=== PATIENT | male | born 1980 | race Caucasian/White ===

== ENCOUNTER 2021-12-16 15:24 | Emergency (ER) | payer OTHER, SELFPAY ==
--- NOTE | ~2021-12-16 | CT_ITS ---
EXAMINATION: CT head/brain wo con, CT cervical spine wo con INDICATION INFORMATION: Fall. COMPARISON: CT head 10/16/2014 TECHNIQUE: Separate noncontrast CT examinations of the head and cervical spine were performed. Coronal and sagittal reformats were obtained at the acquisition workstation. DLP: 810 mGy-cm FINDINGS: HEAD: There is no evidence of acute intracranial hemorrhage or territorial infarction. Jeong to white matter differentiation is well preserved. No abnormal mass effect or midline shift is seen. No extra-axial fluid collections are identified. No hydrocephalus. No significant volume loss. There is no abnormal attenuation within the brain parenchyma. The cerebellar tonsils are well positioned. Right posterior parietal soft tissue swelling and scalp hematoma. No acute calvarial fracture is seen. Evidence of old left lamina papyracea fracture. . Visualized portions of the orbits are unremarkable. The mastoid air cells and visualized portions of the paranasal sinuses are well aerated. CERVICAL SPINE: Posterior alignment is maintained without significant subluxation. Vertebral body heights are maintained. No acute fractures are identified. Disc spaces relatively maintained. Mild C6-C7 disc degeneration. The atlantoaxial and atlantooccipital articulations are intact. No prevertebral soft tissue swelling. There is no cervical lymphadenopathy. No suspicious thyroid findings seen.. The visualized lung apices are clear. Visualized portion the clavicles and ribs appear intact. CT/CT head/brain wo con IMPRESSION: No CT evidence of acute intracranial pathology. Right posterior parietal soft tissue swelling and scalp hematoma. No acute osseous abnormality identified within the cervical spine.
--- NOTE | ~2021-12-16 | XR_ITS ---
EXAMINATION: 1. RADIOGRAPHS RIGHT RIBS 2. RADIOGRAPHS RIGHT SHOULDER CLINICAL INFORMATION: Pain after fall down 9 stairs. COMPARISON: None TECHNIQUE: 3 views of the right ribs and 4 views of the right shoulder were obtained. FINDINGS: Right RIBS: Cardiac silhouette is normal in size. The lungs are well aerated. There is no lobar consolidation. No pleural effusion or pneumothorax. No right-sided rib fracture. Right shoulder: Visualized portion of the proximal right humerus demonstrate no fracture. Humeral head demonstrates good articulation with the glenoid fossa. The right acromioclavicular joint is normal in appearance. XR/XR shoulder RT min 2V IMPRESSION: -No right-sided rib fracture. -Unremarkable radiographs of the right shoulder.
--- NOTE | ~2021-12-16 | XR_ITS ---
EXAMINATION: 1. RADIOGRAPHS RIGHT RIBS 2. RADIOGRAPHS RIGHT SHOULDER CLINICAL INFORMATION: Pain after fall down 9 stairs. COMPARISON: None TECHNIQUE: 3 views of the right ribs and 4 views of the right shoulder were obtained. FINDINGS: Right RIBS: Cardiac silhouette is normal in size. The lungs are well aerated. There is no lobar consolidation. No pleural effusion or pneumothorax. No right-sided rib fracture. Right shoulder: Visualized portion of the proximal right humerus demonstrate no fracture. Humeral head demonstrates good articulation with the glenoid fossa. The right acromioclavicular joint is normal in appearance. XR/XR ribs RT min 3V w CXR1V IMPRESSION: -No right-sided rib fracture. -Unremarkable radiographs of the right shoulder.
--- NOTE | ~2021-12-16 | CT_ITS ---
EXAMINATION: CT head/brain wo con, CT cervical spine wo con INDICATION INFORMATION: Fall. COMPARISON: CT head 10/16/2014 TECHNIQUE: Separate noncontrast CT examinations of the head and cervical spine were performed. Coronal and sagittal reformats were obtained at the acquisition workstation. DLP: 810 mGy-cm FINDINGS: HEAD: There is no evidence of acute intracranial hemorrhage or territorial infarction. Jeong to white matter differentiation is well preserved. No abnormal mass effect or midline shift is seen. No extra-axial fluid collections are identified. No hydrocephalus. No significant volume loss. There is no abnormal attenuation within the brain parenchyma. The cerebellar tonsils are well positioned. Right posterior parietal soft tissue swelling and scalp hematoma. No acute calvarial fracture is seen. Evidence of old left lamina papyracea fracture. . Visualized portions of the orbits are unremarkable. The mastoid air cells and visualized portions of the paranasal sinuses are well aerated. CERVICAL SPINE: Posterior alignment is maintained without significant subluxation. Vertebral body heights are maintained. No acute fractures are identified. Disc spaces relatively maintained. Mild C6-C7 disc degeneration. The atlantoaxial and atlantooccipital articulations are intact. No prevertebral soft tissue swelling. There is no cervical lymphadenopathy. No suspicious thyroid findings seen.. The visualized lung apices are clear. Visualized portion the clavicles and ribs appear intact. CT/CT cervical spine wo con IMPRESSION: No CT evidence of acute intracranial pathology. Right posterior parietal soft tissue swelling and scalp hematoma. No acute osseous abnormality identified within the cervical spine.
[2021-12-16 15:31] VITALS: BP 128/70; PULSE 73; RESP 18; TEMP 36.9; O2SAT 98; BMI 28.5
[2021-12-16 15:33] VITALS: BP 128/70; PULSE 68; RESP 16; TEMP 36.9; O2SAT 97
[2021-12-16] MEDS: Lidocaine HCl 1 % MPF 5 ML VIAL SUBCUT ×2 (16:46)
[2021-12-16] MEDS: Diphth,Pertus(ACell),Tet Adult 0.5 ML SYRINGE IM (16:46)
--- NOTE | 2021-12-16 17:46 | ED.FALL ---
HPI - Fall General Chief Complaint: Fall Stated Complaint: syncope Time Seen by Provider: 12/16/21 15:46 Source: patient and EMS Mode of arrival: EMS History of Present Illness HPI Narrative: 40-year-old male with no significant PMHx presenting to the ED complaining of scalp hematoma, forehead and eyelid laceration, right shoulder and right rib pain s/p fall down 9 stairs and syncopal episode [employer]IDE [employer]. Reports was helping friend and had mechanical fall down stairs landing on ribs/ hit back of head without LOC, denies symptoms prior to fall. Reports then went home and slept it off, states when woke up stood up had severe right-sided rib pain, felt lightheaded and syncopized falling to the ground +head trauma, +LOC, + sustaining facial lacerations. Denies headache at present, lightheadedness/dizziness, CP/SOB, abdominal pain, nausea/vomiting. Denies taking anticoagulation. Tetanus unknown MD complaint: fall Onset (ago): hour(s) Related Data Allergies Allergy/AdvReac Type Severity Reaction Status Date / Time No Known Allergies Allergy Unverified 07/14/20 16:08 Review of Systems Review of Systems: Constitutional: No Fever, No Chills, No Fatigue, No Malaise ENT/Mouth: No Ear Pain, No Nasal Congestion, No sore throat, No Rhinorrhea Eyes: No Eye Pain, No Swelling, No Redness, No Vision Changes Cardiovascular: + Chest wall Pain, No SOB, No Edema, No Palpitations Respiratory: No Cough, No Sputum, No Dyspnea Gastrointestinal: No Nausea, No Vomiting, No Diarrhea, No Constipation, No Abdominal pain Genitourinary: No Dysuria, No Urinary Frequency, No Hematuria, No Urinary Incontinence, No Flank Pain Musculoskeletal: + joint pain, No Myalgias, No Joint Swelling Skin: + Skin Lesions, No rash Neuro: No Weakness, No Numbness, No Paresthesias, + Loss of Consciousness, + lightheadedness (resolved), No Headache Yes all other systems are reviewed and are negative Neurologic: Denies Abnormal speech present [facility] Past Medical History Attestation statement: The following information was validated with the patient. Medical History No known health problems Social History Social History Advance Directives: No Advance Directives Information Provided: No Physical Exam Vital Signs: Vital Signs: Last Vital Signs Temp 98.4 F 12/16/21 15:33 Pulse 68 12/16/21 15:33 Resp 16 12/16/21 15:33 BP 128/70 12/16/21 15:33 Pulse Ox 97 12/16/21 15:33 BMI result Body Mass Index 28.5 Const: General: cooperative Orientation/consciousness: patient oriented x3 Limitations: no limitations HENMT: Other: + hematoma to right posterior scalp with overlying abrasions. No palpable skull depression Head: No Carney's sign and No raccoon eyes Ears: hearing grossly normal bilaterally General nose exam: Normal external nose present Face and sinus: Yes normal facial exam Mouth: Normal oral and palatal mucosa present Throat: Yes posterior oropharynx normal Eyes: General: appearance normal, both eyes and all related structures Pupils: Equal, round and reactive pupils present EOM: EOMs intact bilaterally Neck: Other: No midline cervical spinous tenderness/step-off or deformity Neck: Yes normal visual inspection, Yes no meningeal signs and Yes supple Chest: Other: Right anteriolateral chest wall tenderness reproducing subjective complaint Chest palpation & inspection: no crepitus and tenderness Resp: Effort & Inspection: normal respiratory effort and no respiratory distress Auscultation: clear to auscultation bilaterally, no crackles and no wheezes Cardio: Rate: regular rate Heart sounds: S1 normal heart sound present and S2 normal heart sound present GI: Inspection: Yes normal to inspection Palpation (GI): Soft to palpation, nontender, no guarding and not rigid : General: Yes no CVA tenderness Back/Spine/Pelvis: Other: No midline thoracic/lumbar spinous tenderness/step-off or deformity Back: no CVA tenderness Skin: Other: + 2 cm Irregular deep laceration to forehead + 2 cm superficial laceration to right upper eyelid. No ocular involvement. PERRLA, EOMI Rashes: no rashes Neuro: General: patient oriented x3, gait normal, tone normal, moves all extremities, no meningeal signs, no focal motor deficits and CN's II-XI intact bilaterally Cranial nerves: Yes CN's II-XII intact bilaterally, Yes Equal, round and reactive pupils present, Yes Bilaterally intact EOM present and Yes Midline tongue present Cognition (Neuro): normal cognition Speech: No Abnormal speech present Gait exam (Neuro): Normal gait present Motor exam (neuro): 5/5 motor strength present throughout Extrem: Other: Right shoulder with mild tenderness. No deformity. Neurovascular intact distally. Full range of motion intact. Clavicle nontender General: Yes normal to inspection Course Course Course Narrative: CT head/brain wo con/ CT cervical spine wo con IMPRESSION: No CT evidence of acute intracranial pathology. Right posterior parietal soft tissue swelling and scalp hematoma. No acute osseous abnormality identified within the cervical spine. XR shoulder RT min 2V/XR ribs RT min 3V w CXR1V IMPRESSION: -No right-sided rib fracture. -Unremarkable radiographs of the right shoulder.? -patient agreeable to labs and EKG being performed however would like to be discharged prior to results > discussed risks of leaving, patient verbalized understanding, is A&O x3, Ambulating around ED without difficulty, competent to make his own decisions -1834--Labs resulted: AST/ALT elevated (no priors to compare-to follow-up with GI outpatient), Troponin 30.7 >> called and spoke to patient, made aware of result & Educated patient on importance of repeat troponin 3 hours from prior due to symptomatology and inability to rule out cardiac event as presented after syncopal episode. Recommended return to ED around 21:00 for repeat Troponin, patient verbalized understanding and stated he would return to emergency department for repeat lab test Procedures Laceration Laceration 1: Site: face Size (cm): 2 Description: irregular Depth: simple, single layer Local Anesthetic: lidocaine 1% Amount of anesthesia used (mL): 3 Pre-repair: wound explored Skin layer closed with: nylon Size (cm): 6-0 Number of sutures: 6 Technique: simple, interrupted Laceration 2: Site: face (Right upper eyelid) Side (If applicable): right Size (cm): 2 Description: linear Depth: simple, single layer Pre-repair: wound explored Skin layer closed with: other (Dermabond) MDM - Fall MDM Narrative Medical decision making narrative: 40-year-old male with no significant PMHx presenting to the ED complaining of scalp hematoma, forehead and eyelid laceration, right shoulder and right rib pain s/p fall down 9 stairs and syncopal episode [employer]. On exam vital signs stable, NAD/nontoxic-appearing, physical exam as above, no focal neuro deficits, right-sided rib tenderness elicited, no abdominal tenderness. Concern for ICH/rule out fracture vs rib fracture or contusion vs shoulder sprain. Syncope likely vasovagal/pain related, r/o arrhythmia vs ACS Low suspicion for intra-abdominal injury without tenderness on exam Pain: EKG, labs, head/C-spine CT, rib series, shoulder x-ray, update tetanus, repair wounds Differential Diagnosis Differential diagnosis: Likely syncope, fracture and concussion with loss of consciousness Medical Records Attestation: I reviewed the patient's medical records. Lab Data Attestation: I reviewed the patient's lab results. Result diagrams: 12/16/21 17:59 12/16/21 17:59 Labs: Lab Results 12/16/21 12/16/21 12/16/21 Range/Units 17:59 17:59 17:59 WBC 11.0 H (4.8-10.8) X10*3/uL RBC 4.72 (4.60-5.80) X10*6/uL Hgb 14.6 (14.0-18.0) g/dl Hct 42.1 (42.0-52.0) % MCV 89.2 (80.0-98.0) fL MCH 30.9 (27.0-33.0) pg MCHC 34.7 (31.0-36.0) g/dl RDW 12.8 (11.0-16.0) % Plt Count 212 (160-400) X10*3/uL MPV 12.1 (9.4-12.4) fL Immature Gran % (Auto) 0.3 (0.0-0.4) % Neut % (Auto) 76.2 H (45-73) % Lymph % (Auto) 13.0 L (20-40) % Lawrence % (Auto) 10.2 (2-11) % Eos % (Auto) 0.0 (0-4) % Baso % (Auto) 0.3 (0-2) % Lymph # (Auto) 1.4 (1.2-4.9) X10*3/uL Lawrence # (Auto) 1.1 (0.1-1.2) X10*3/uL Eos # (Auto) 0.0 (0.0-0.4) X10*3/uL Baso # (Auto) 0.0 (0.0-0.2) X10*3/uL Abs Immat Gran (auto) 0.03 (0.00-0.03) X10*3/uL Absolute Neuts (auto) 8.4 H (2.0-8.3) x10*3/uL Absolute Nucleated RBC 0.000 (0.0-0.012) X10*3/uL Nucleated RBC % (auto) 0.0 (0.0-0.2) /100WBC Sodium 142 (135-145) mmol/L Potassium 4.8 (3.3-5.1) mmol/L Chloride 108 (96-108) mmol/L Carbon Dioxide 23 (22-29) mmol/L Anion Gap 16 (12-20) BUN 8 L (9-16) mg/dL Creatinine 0.71 (0.5-1.4) mg/dL Estim Creat Clear Calc 157.9 Estimated GFR > 60 Random Glucose 87 (60-115) mg/dL Calcium 9.4 (8.4-10.2) mg/dL Magnesium 2.3 (1.6-2.6) mg/dL Total Bilirubin 0.3 (0.0-1.0) mg/dL Direct Bilirubin 0.2 (0.0-0.5) mg/dL AST 103 H (5-37) U/L ALT 150 H (0-40) U/L Alkaline Phosphatase 69 (39-117) U/L Troponin I High Sens 30.7 (<3.5-35.0) ng/L Total Protein 7.4 (6.5-8.0) g/dL Albumin 4.4 (3.5-5.0) g/dL ECG Data Attestation: I personally reviewed and interpreted this ECG as follows: ECG interpretation date: 12/16/21 ECG interpretation time: 18:27 Interpretation: EKG normal sinus rhythm at a rate of 70. QRS 80. QTC 414. Mild ST changes in V2/V3. No STEMI Discharge Plan Discharge Clinical Impression: Syncope, Forehead laceration, Eyelid laceration, Contusion of rib Patient Disposition: Home, Self-Care Instructions: Laceration (DC), Syncope (DC), Rib Contusion (ED) Additional Instructions: The scan of your head, neck, x-rays of your shoulder and ribs were unremarkable The skin glue on your eyelid will fall off on its own, do not pick at it. You need to return to any emergency department or urgent care in 5 days for suture removal Apply ice to your head lump You have blood work that is pending right now, you would not stay for the results, of anything is concerning we will call you If you have constant worsening headache, pass out again, chest pain, shortness of breath, lightheadedness or dizziness please return to the emergency department Please apply bacitracin or Neosporin to your wounds. After sutures come out apply anti scar cream like Moderna Referrals: Reyna Laureano MD [Emergency Provider] - 5 days (Return to any emergency department or urgent care in 5 days for suture removal) Interventions: ED Discharge Assessment Last Done: 12/16/21 18:22 Discharge Date/Time: 12/16/21 18:23
--- NOTE | 2021-12-16 17:53 | ECG_ITS ---
Test Reason : fall Blood Pressure : / mmHG Vent. Rate : 070 BPM Atrial Rate : 070 BPM P-R Int : 178 ms QRS Dur : 088 ms QT Int : 384 ms P-R-T Axes : 051 085 052 degrees QTc Int : 414 ms Normal sinus rhythm Minimal voltage criteria for LVH, may be normal variant ( Richard product ) Possible Lateral infarct , age undetermined Abnormal ECG No previous ECGs available Referred By: Jeri Mendiola Electronically Signed By:NICKIE ROACH MD
[2021-12-16 18:04] LABS: MANUAL DIFF FLAG NO
[2021-12-16 18:05] LABS: Basophils Percent Auto 0.3 % (0-2); Hematocrit 42.1 % (42.0-52.0); Hemoglobin 14.6 g/dl (14.0-18.0); Imm Gran Abs Auto 0.03 X10*3/uL (0.00-0.03); Imm Gran Pct Auto 0.3 % (0.0-0.4); Lymphocytes Absolute Auto 1.4 X10*3/uL (1.2-4.9); Mean Corpuscular HGB Conc 34.7 g/dl (31.0-36.0); Mean Corpuscular Hemoglobin 30.9 pg (27.0-33.0); Mean Corpuscular Volume 89.2 fL (80.0-98.0); Mean Platelet Volume 12.1 fL (9.4-12.4); Monocytes Absolute Auto 1.1 X10*3/uL (0.1-1.2); Monocytes Percent Auto 10.2 % (2-11); Neutrophils Absolute Auto 8.4 x10*3/uL (2.0-8.3); Neutrophils Percent Auto 76.2 % (45-73); Platelet Count 212 X10*3/uL (160-400); Red Blood Count 4.72 X10*6/uL (4.60-5.80); Red Cell Distribution Width 12.8 % (11.0-16.0)
[2021-12-16 18:24] LABS: Troponin-I High Sensitivity 30.7 ng/L (<3.5-35.0)
[2021-12-16 18:26] LABS: Alanine Aminotransferase 150 U/L (0-40); Albumin Level 4.4 g/dL (3.5-5.0); Alkaline Phosphatase 69 U/L (39-117); Anion Gap 16 (12-20); Aspartate Amino Transferase 103 U/L (5-37); Bilirubin Direct 0.2 mg/dL (0.0-0.5); Bilirubin Total 0.3 mg/dL (0.0-1.0); Blood Urea Nitrogen 8 mg/dL (9-16); Calcium 9.4 mg/dL (8.4-10.2); Carbon Dioxide 23 mmol/L (22-29); Chloride 108 mmol/L (96-108); Creatinine Clr Calc Pharmacy 157.9; Estimated Glomerular Filt Rate > 60; Glucose Random 87 mg/dL (60-115); Magnesium 2.3 mg/dL (1.6-2.6); Potassium 4.8 mmol/L (3.3-5.1); Sodium 142 mmol/L (135-145); Total Protein 7.4 g/dL (6.5-8.0)
== END 2021-12-16 18:23 | disposition home or self-care (01) ==
PROVIDERS: Physician Assistant; Emergency Provider Emergency Medicine; PCP Internal Medicine
DX: R55 Syncope and collapse (principal); S01.81XA Laceration without foreign body of other part of head, initial encounter; S01.111A Laceration without foreign body of right eyelid and periocular area, initial encounter; S00.03XA Contusion of scalp, initial encounter; S20.211A Contusion of right front wall of thorax, initial encounter; W10.9XXA Fall (on) (from) unspecified stairs and steps, initial encounter; Y93.89 Activity, other specified; Y92.009 Unspecified place in unspecified non-institutional (private) residence as the place of occurrence of the external cause; Y99.9 Unspecified external cause status
CPT/HCPCS: 12013; 36415; 70450; 71101; 72125; 73030; 80048; 80076; 83735; 84484; 85025; 90471; 90715; 93005; 99284

== ENCOUNTER 2021-12-16 21:31 | Emergency (ER) | payer OTHER, SELFPAY ==
[2021-12-16 21:35] VITALS: BP 134/62; PULSE 80; RESP 18; TEMP 36.9; O2SAT 98; BMI 28.5
[2021-12-16 22:10] LABS: Troponin-I High Sensitivity 24.5 ng/L (<3.5-35.0)
--- NOTE | 2021-12-16 22:13 | ED.RECABL ---
HPI - Recheck/Abnormal Lab/Rx General Chief Complaint: Recheck/Abnormal Lab/Rx Stated Complaint: needs to have lab work Time Seen by Provider: 12/16/21 22:10 Source: patient Mode of arrival: ambulatory Limitations: no limitations History of Present Illness HPI narrative: 40-year-old male is seen here earlier for syncope. Patient wanted to leave before his labs were resulted. After he left his initial troponin was noted to be 30. It was recommended he return for repeat troponin. Of note the patient denies any presyncopal symptoms of palpitations, chest pain, shortness of breath, dizziness. He is feeling well at this time and denies any chest pain. Related Data Allergies Allergy/AdvReac Type Severity Reaction Status Date / Time No Known Allergies Allergy Verified 12/16/21 21:35 Review of Systems Review of Systems: Yes all other systems are reviewed and are negative Constitutional: Constitutional: Reports no additional constitutional complaints, Denies body ache(s), Denies chills, Denies fever(s), Denies headache(s) and Denies weakness Eyes: Eyes: Reports no additional eye complaints and Denies change in vision ENT: Reports system reviewed and no additional complaints, except as documented, Denies dizziness, Denies headache(s), Denies nasal congestion, Denies nasal discharge and Denies neck pain Cardiovascular: Cardiovascular: Reports no additional cardiovascular complaints, Denies chest pain, Denies leg edema and Denies dyspnea Respiratory: Respiratory: Reports no additional respiratory complaints, Denies cough and Denies dyspnea Gastrointestinal: Gastrointestinal: Reports no additional gastrointestinal complaints, Denies abdominal pain, Denies diarrhea, Denies nausea and Denies vomiting Genitourinary: Genitourinary: Denies urinary incontinence Musculoskeletal: Musculoskeletal: Reports no additional musculoskeletal complaints, Denies back pain, Denies arthralgias, Denies joint swelling, Denies neck pain, Denies numbness and Denies tingling Integumentary/Breasts: Skin/Breast: Reports system reviewed and no additional complaints, except as docu and Denies rash Neurologic: Reports system reviewed and no additional complaints, except as documented, Denies Abnormal speech present, Denies dizziness, Denies headache(s), Denies numbness, Denies tingling and Denies weakness PMF Past Medical History Attestation statement: The following information was validated with the patient. Source: old records reviewed and nursing notes reviewed Medical History No known health problems Social History Social History Advance Directives: No Advance Directives Information Provided: No Physical Exam Vital Signs: Vital Signs: Last Vital Signs Temp 98.4 F 12/16/21 21:35 Pulse 80 12/16/21 21:35 Resp 18 12/16/21 21:35 BP 134/62 12/16/21 21:35 Pulse Ox 98 12/16/21 21:35 BMI result Body Mass Index 28.5 Const: General: cooperative, healthy appearing, comfortable and no acute distress Orientation/consciousness: patient oriented x3 Limitations: no limitations HENMT: Head: Yes normal to inspection Ears: hearing grossly normal bilaterally General nose exam: Normal external nose present Face and sinus: Yes normal facial exam Mouth: Normal oral and palatal mucosa present Throat: Yes posterior oropharynx normal Eyes: General: appearance normal, both eyes and all related structures Pupils: Equal, round and reactive pupils present Neck: Neck: Yes normal visual inspection Chest: Chest palpation & inspection: normal inspection of the chest Resp: Effort & Inspection: normal respiratory effort Auscultation: clear to auscultation bilaterally Cardio: Rate: regular rate Rhythm: regular rhythm Peripheral pulses: Peripheral pulses 2+ throughout GI: Inspection: Yes normal to inspection Palpation (GI): Soft to palpation and nontender Auscultation: normal bowel sounds Back/Spine/Pelvis: Thoracic/Lumbar Spine: thoracic and lumbar spine normal to inspection Skin: General skin exam: no rashes or lesions noted Neuro: General: patient oriented x3, no focal motor deficits and normal sensation to monofilament Cranial nerves: Yes Equal, round and reactive pupils present Cognition (Neuro): normal cognition Speech: No Abnormal speech present Gait exam (Neuro): Normal gait present Motor exam (neuro): 5/5 motor strength present throughout Extrem: General: Yes normal to inspection Course Course Course Narrative: 40-year-old male seen here earlier for syncope had workup including EKG, images of head and neck. Patient left prior to labs being resulted and was then called back to be informed to his initial troponin was 30 and he should return for a repeat troponin. Of note the patient has no complaints and is feeling well. His EKG from earlier shows no ischemic changes. His initial troponin was 30. Will plan for repeat troponin and if normal anticipate discharge home. 2215-repeat troponin 24.5. Less likely ACS with no reports of chest pain, normal EKG and troponin x2 unchanged. was informed of his results. Recommend he continue with his planned previously given to him today for follow-up. Reviewed worrisome signs and symptoms of when to return to the emergency department. Comfortable discharge home. MDM - Recheck/Abnormal Lab/Rx Medical Records Attestation: I reviewed the patient's medical records. Lab Data Attestation: I reviewed the patient's lab results. Labs: Lab Results 12/16/21 Range/Units 21:40 Troponin I High Sens 24.5 (<3.5-35.0) ng/L Discharge Plan Discharge Clinical Impression: Encounter for medical screening examination Patient Disposition: Home, Self-Care Instructions: Normal Exam (ED) Additional Instructions: Your repeat level was unchanged. Continue to follow with your instructions that you received earlier today Interventions: ED Discharge Assessment Last Done: 12/16/21 22:16
== END 2021-12-16 22:16 | disposition home or self-care (01) ==
PROVIDERS: Emergency Provider Internal Medicine
DX: R77.8 Other specified abnormalities of plasma proteins (principal); Z03.89 Encounter for observation for other suspected diseases and conditions ruled out
CPT/HCPCS: 36415; 84484; 99283